=== PATIENT | male | born 1945 | race Caucasian/White ===

== ENCOUNTER 2022-10-03 04:07 | Emergency (ER) | payer MEDICARE, OTHER ==
[2022-10-03] MEDS ORDERED: cefTRIAXone 2 GM Vial IVPUSH ONE (04:55)
[2022-10-03 04:56] LABS: ANION GAP 11.8 mmol/L (5-15)
[2022-10-03] MEDS ORDERED: Ciprofloxacin 500 MG Tab PO ONE (05:05)
== END 2022-10-03 05:30 | disposition home or self-care (01) ==
LOC: KA.ED 04:07
DX: N39.0 Urinary tract infection, site not specified (principal); B96.89 Other specified bacterial agents as the cause of diseases classified elsewhere; E78.00 Pure hypercholesterolemia, unspecified; J44.9 Chronic obstructive pulmonary disease, unspecified; K21.9 Gastro-esophageal reflux disease without esophagitis; Z79.01 Long term (current) use of anticoagulants; Z86.16 Personal history of COVID-19
CPT/HCPCS: 36415; 51798; 80048; 81001; 83605; 85025; 87040; 87086; 87088; 96374; 99284; A9270; J0696; 99283